=== PATIENT | female | born 1940 | race Caucasian/White ===

== ENCOUNTER 2020-03-23 13:47 | Inpatient (IN) ==
[2020-03-23] MEDS ORDERED: CeFAZolin Syr 2,000MG/20 ML 2,000 MG/20 ML SYRINGE IVPB ONE (14:22)
[2020-03-23] MEDS ORDERED: Ringers Solution, Lactated 1,000 ML IVC SCH ×2 (14:30→20:35)
[2020-03-23] MEDS ORDERED: Acetaminophen IV 1,000 MG/100 ML INFUS..BTL IVPB ONE (14:58)
[2020-03-23] MEDS ORDERED: *HR* OxyCODONE Immed Rel 5 MG TABLET PO PRN ×2 (15:17→20:35)
[2020-03-23] MEDS ORDERED: *HR* HYDROmorphone PF 0.5 MG/0.5 ML SYRINGE IVP PRN (15:17)
[2020-03-23] MEDS ORDERED: Ondansetron 4 MG/2 ML VIAL IVP ONE (15:17)
[2020-03-23] MEDS ORDERED: Total Joint Mixture (50 ml) INTRAART ONE (16:10)
[2020-03-23] MEDS ORDERED: Ethanol\\Acetic Acid\\Na Ace\\Ben 1,000 ML IRRIG.SOLN IR ONE (17:10)
[2020-03-23] MEDS ORDERED: Vancomycin 1,000 MG VIAL ONE (17:10)
[2020-03-23] MEDS ORDERED: Ropivacaine/PF 0.5% 30 ML VIAL ONE (17:23)
[2020-03-23] MEDS ORDERED: Bupivacaine/EPI 1:200k 0.5%PF 10 ML VIAL ONE (17:23)
[2020-03-23] MEDS ORDERED: Dexamethasone 4 MG/ML VIAL ONE (17:25)
[2020-03-23] MEDS ORDERED: *HR* Midazolam HCl 2 MG/2 ML VIAL ONE (17:25)
[2020-03-23] MEDS ORDERED: *HR* FentaNYL (PF) 100 MCG/2 ML VIAL ONE (17:25)
[2020-03-23] MEDS ORDERED: Tranexamic Acid 1,000 MG/10 ML VIAL ONE ×2 (17:55→18:01)
[2020-03-23 20:29] LABS: Hematocrit 38.5 % (35.3-44.9)
[2020-03-23] MEDS ORDERED: Ondansetron 4 MG/2 ML VIAL IVP PRN (20:35)
[2020-03-23] MEDS ORDERED: D5% in Water 1,000 ML IVC PRN (20:35)
[2020-03-23] MEDS ORDERED: Sennosides 8.6 MG TABLET PO PRN (20:35)
[2020-03-23] MEDS ORDERED: HYDROcodone BIT/Homatropine 5 MG TABLET PO PRN (20:35)
[2020-03-23] MEDS ORDERED: MOM Conc 10 ML UD.LIQ PO PRN (20:35)
[2020-03-23] MEDS ORDERED: *HR* Promethazine 25 MG/ML VIAL IVP PRN (20:35)
[2020-03-23] MEDS ORDERED: Naloxone 0.4 MG/ML INJ IVP PRN (20:35)
[2020-03-23] MEDS ORDERED: Dextrose Gel 15 GM/37.5 ML TUBE PO PRN ×2 (20:35)
[2020-03-23] MEDS ORDERED: *HR* Dextrose 50 % in Water (Vial) 50 ML VIAL IVP PRN (20:35)
[2020-03-23] MEDS ORDERED: Insulin LISPRO 300 UNITS/3 ML VIAL SQ SCH (21:00)
[2020-03-24] MEDS: CeFAZolin 2 GM/120 ML BAG IVPB SCH ×2 (00:16→08:16)
[2020-03-24 02:15] LABS: Basophils % 0.1 %; Hematocrit 33.7 % (35.3-44.9); Hemoglobin 10.9 g/dL (11.5-15.4); Immature Granulocytes % 0.3 % (0-4); Lymphocytes # 0.4 K/mcL (0.6-4.6); Lymphocytes % 3.5 %; Mean Corpuscular HGB Conc 32.3 g/dL (31.6-35.5); Mean Corpuscular Hemoglobin 29.7 pg (28.0-33.3); Mean Corpuscular Volume 91.8 fL (83.0-100.0); Mean Platelet Volume 9.8 fL (9.4-12.4); Monocytes # 0.5 K/mcL (0.0-1.3); Monocytes % 4.8 %; Neutrophils # 10.3 K/mcL (1.6-8.9); Platelet Count 206 K/mcL (140-400); Red Blood Count 3.67 M/mcL (3.82-4.97); Red Cell Distribution Width 12.9 % (11.5-14.5); Segmented Neutrophils % 91.3 %; White Blood Count 11.3 K/mcL (4.3-11.1)
[2020-03-24 02:30] LABS: BUN/Creatinine Ratio 24 (6-26); Blood Urea Nitrogen 16 mg/dL (8-23); Calcium 8.9 mg/dL (8.6-10.3); Carbon Dioxide 24 mEq/L (23-29); Chloride 108 mEq/L (98-107); Glucose 196 mg/dL (70-105); Osmolality,Calculated 295 (280-300); Potassium 3.7 mEq/L (3.5-5.1); Sodium 139 mEq/L (136-145); eGFR For African Americans > 60 (> 60); eGFR For Non-African Americans > 60 (> 60)
[2020-03-24] MEDS ORDERED: Ascorbic Acid 500 MG TABLET PO SCH (08:00)
[2020-03-24] MEDS: Insulin LISPRO 300 UNITS/3 ML VIAL SQ SCH ×2 (08:12→11:28)
[2020-03-24] MEDS ORDERED: GINKGO BILOBA 60 MG PO SCH (09:00)
[2020-03-24] MEDS ORDERED: Cholecalciferol (D-3) 1,000 UNIT (25MCG) TABLET PO SCH (09:00)
[2020-03-24] MEDS ORDERED: Aspirin Enteric Coated 81 MG Tablet PO SCH ×2 (09:00)
[2020-03-24] MEDS ORDERED: Multivit/Ca/Min/Fe/FA 1 TAB TABLET PO SCH ×2 (09:00)
[2020-03-24] MEDS ORDERED: Cyanocobalamin (B-12) 1,000 MCG TABLET PO SCH (09:00)
[2020-03-24 11:27] VITALS: BP 110/64
== END 2020-03-24 14:10 | disposition home health service (06) | DRG 470 ==
LOC: SAMDAY 13:47 → 3NENU 20:58
PROVIDERS: ADMIT Orthopaedic Surgery; ATTEND Orthopaedic Surgery